=== PATIENT | female | born 1985 | race Caucasian/White ===

== ENCOUNTER 2016-07-31 18:14 | Inpatient (IN) | payer OTHER ==
[~2016-07-31] VITALS: Ht 170.2 cm; Wt 78.9 kg
[2016-07-31] MEDS ORDERED: Lactated Ringer's 1,000 ML IV PRN (19:13)
[2016-07-31] MEDS ORDERED: Carboprost 250 mCg/mL Inj IM PRN ×2 (19:15→22:50)
[2016-07-31] MEDS ORDERED: Hemorrhage Kit, Post Partum XX ONE ×2 (19:15→22:50)
[2016-07-31] MEDS ORDERED: Oxytocin 30 Units/500 mL LR 30 UNITS in IV Premix 1 EACH IV PRN ×2 (19:15→22:50)
[2016-07-31] MEDS ORDERED: Sodium Chloride LOK Flush 10 mL Syringe IVFLUSH PRN (19:15)
[2016-07-31] MEDS ORDERED: Methylergonovine 0.2 mg/mL Inj IM PRN ×2 (19:15→22:50)
[2016-07-31] MEDS ORDERED: Oxytocin 10 Unit/mL Inj IM PRN ×2 (19:15→22:50)
--- NOTE | 2016-07-31 19:30 | PCM.HPANE ---
Patient Data Surgeon Admitting Provider:Diana Batista MD Attending Provider:Diana Batista MD Primary Care Physician:Kenia Other Provider:Isabella Montez Anesthesia Reason for Visit Term Labor Check Ht/WT & BMI Body Mass Index Allergies Coded Allergies: No Known Allergies (Unverified , 07/31/16) Past Anesthesia History Anesthesia History: Denies:: Abnormal Airway, Anesthesia Reactions, Difficult Intubation, Fam Anesthesia Reaction, Fam Malignant Hypertherm, Malignant Hyperthermia Diabetes History Hx Diabetes?: No Medications Hypertension Medication: No Home Meds Incl Beta Aren: No History History of ENT Problems?: No HEENT History: Denies:: Abnormal Airway Cataracts Difficult Intubation Dysphagia Glaucoma Hearing Problem Sinus Problem TMJ Denture Type: None Teeth Condition: Within Normal Limits Hx of Heart Problems?: No Cardiovascular History: Denies:: AICD Abdominal Aortic Aneurism Atrial Fibrillation Cardiac Surgery Chest Pain Congestive Heart Failure Coronary Artery Disease Edema Heart Murmur Hypertension Irregular Heartbeat Pacemaker Peripheral Vascular Rheumatic Fever Thrombophlebitis Valvular Heart Disease Hx of Respiratory Problem?: No Respiratory History: Denies:: Asthma COPD Chest Surgery Cough Dyspnea Emphysema Hemoptysis Oxygen Administration Pneumonia Pulmonary Embolism Tuberculosis Use of C-PAP Machine Use of Inhalers / NEBS Hx Neurologic Problems?: No Hx of GI Problems?: No Hx of Problems?: No Female Hx: Positive for:: Currently Other History/Comment at term, uncomplicated Skin History: Denies:: History Skin Disorders? Pressure Ulcers Hx Musculoskeletal Problems?: No Hx of Psycho/Social Problems?: No Hx Surgeries?: No Hx Any Other Health Problems?: No Hx Diabetes: No Hx Alcohol Use: NoHx Substance Use: No Stop/Bang Treated for Sleep Apnea?: No Do You Have a CPAP Machine?: No Risk Assessment Category Category 1A: Patient has history of documented sleep apnea, and HAS NOT received any narcotic, sedative or anesthesia administration during this stay. Category 1B: Patient has history of documented sleep apnea, and HAS received any narcotic , sedative or anesthesia administration during this stay Category 2: Patient has SUSPECTED Obstructive Sleep Apnea, and HAS received any narcotic , sedative or anesthesia administration during this stay. Category 3: Patient has SUSPECTED Obstructive Sleep Apnea and HAS NOT received narcotic, sedative or anesthesia administration during this stay. Category 4: Outpatient in Procedural Areas with known sleep apnea or who screen positive for High Risk via the STOP/BANG questionnaire. Exam Exam General Appearance: Alert, Oriented X3, Cooperative HEENT/AIRWAY: MP 2 Lungs: Clear to Auscultation Heart: Exam Unremarkable Meds/Labs/Diagnostics Labs Test 07/31/16 19:15 Plan Impression Patient chart reviewed, patient interviewed and anesthestic plan with risks, benefits, and alternatives discussed, and informed consent obtained. ASA Physical Status: ASA2 Mod Systemic Disease Anesthetic Plan: Epidural Bene/Risks/Altern/Consents: Yes HP Complete Prior to Induction: Yes Nehemiah Lopez MD Jul 31, 2016 19:30
[2016-07-31 19:31] LABS: Mean Corpuscular Hemoglobin 28.2 pg (27.0-35.0); Mean Corpuscular Volume 83.7 fL (81-100)
[2016-07-31] MEDS ORDERED: Lactated Ringer's 500 ML IV ONE (19:31)
[2016-07-31] MEDS ORDERED: Atropine 1 mg/10 mL (Code) Syringe IVPUSH PRN (19:35)
[2016-07-31] MEDS ORDERED: fentaNYL 2 mCg/mL-Bupiv 0.125% 100 ML EPIDURAL SCH (19:35)
[2016-07-31] MEDS ORDERED: Ondansetron 2 mg/mL 2 mL Inj IVPUSH PRN (19:35)
[2016-07-31] MEDS ORDERED: EPHEDrine Sulfate 50 mg/mL Inj IVPUSH PRN (19:35)
[2016-07-31] MEDS: Lactated Ringer's 1,000 ML IV SCH (20:20)
[2016-07-31] MEDS ORDERED: LANOlin HPA 7 Gm Ointment TOPICAL PRN (22:50)
[2016-07-31] MEDS ORDERED: Benzocaine (Dermoplast) 20% 60 Gm Spray TOPICAL PRN (22:50)
[2016-07-31] MEDS ORDERED: Witch Hazel-Glycerin Pads TOPICAL PRN (22:50)
--- NOTE | 2016-08-01 00:15 | HP ---
[address] [address] HISTORY AND PHYSICAL PATIENT: AUGUST PEÑA : 1985 MR#: [id number] ADMIT: 07/31/2016 JOB ID: [id number] HISTORY OF PRESENT ILLNESS: This is a 30-year-old female, 2, para 1, at 41 weeks. She presented to [facility] for contractions. She was noted to be 3-4 cm dilated with contraction every 2-3 minutes with category 1 tracing. During observation at triage, it was noticed she had rupture of membranes with clear fluid. She is still having contractions every 2-3 minutes and category 1 tracing. This is a patient who had routine care at [facility]. She is a very compliant patient. During her care, it was noticed that her blood type was A-positive. Pap smear was negative in 2016 in December. Varicella immune, rubella immune, RPR negative, HBsAg negative, HIV negative. Chlamydia and gonorrhea negative. Strep B test was negative. She had a couple of urinary tract infections in early and was placed on suppressive management. There was no more infection in later . ALLERGIES: She had no known drug allergies. PAST MEDICAL HISTORY: Declined. PAST SURGICAL HISTORY: Declined. OBSTETRICAL HISTORY: She had one normal vaginal delivery in 2012. GYNECOLOGIC HISTORY: Not complicated. SOCIAL HISTORY: She declined smoking, drinking alcohol, and drug usage. FAMILY HISTORY: Not significant. PHYSICAL EXAMINATION: She is afebrile. Cardiac: RR. No murmur. Pulmonary: Bilaterally clear. Abdomen: Soft, . Contraction noted every 2-3 minutes and nontender uterus. Uterus well relaxed between contractions. heart tracing category 1. She has grossly ruptured and her cervix was 3-4 cm. ASSESSMENT AND PLAN: A 30-year-old female, 2, para 1, at 41 weeks in active labor with rupture of membranes. 1. Admit the patient to [facility]. 2. GBS negative. There is no need for antibiotics at this time. 3. The patient can have epidural for pain management if prefers to. 4. Expect vaginal delivery.
[2016-08-01] MEDS ORDERED: Erythromycin 0.5% 1 Gm Ophthalmic Ointment RIGHT_EYE ONE (01:35)
--- NOTE | 2016-08-01 02:08 | OP ---
[address] [address] OPERATIVE REPORT PATIENT: AUGUST PEÑA : 1985 MR#: [id number] ADMIT: 07/31/2016 JOB ID: [id number] DATE OF SURGERY: 07/31/2016 PREOPERATIVE DIAGNOSIS(ES): POSTOPERATIVE DIAGNOSIS(ES): SURGEON: DELIVERY NOTE: This is a 30-year-old female, 2, para 2 now, admitted to [facility] for active labor and rupture of membranes. The patient got epidural for pain management after admission. Her pain is well controlled. She progressed to full dilation spontaneously quickly and then she started to have good effort to push. The patient was instructed to push and she had very good effort. The was delivered at NUVIA position, then shoulder and chest delivered without difficulty. The was placed on mother's chest after delivery with good and spontaneous cry. Delayed cord clamp was performed after pulsation disappeared. Then, regular cord blood collected. Placenta delivered spontaneously completely and examined with three-vessel cord. Then, the uterus was well contracted. The perineum examined and noticed that there was slight right periurethral laceration with bleeding. One [id number] stitch was placed. There was no other significant laceration or bleeding. EBL during the delivery was about 200 cc. The patient tolerated the procedure well. All instrument, needles, laps and gauzes counted correct twice. This is a male . score was not available at dictation. The weight was not available at dictation.
[2016-08-01 06:39] LABS: Mean Corpuscular Hemoglobin 28.4 pg (27.0-35.0); Mean Corpuscular Volume 84.4 fL (81-100)
[2016-08-01] MEDS: Lactated Ringer's 1,000 ML IV SCH ×3 (06:47→14:47)
[2016-08-01] MEDS: Sodium Chloride LOK Flush 10 mL Syringe IVFLUSH SCH ×3 (08:30→16:30)
[2016-08-01] MEDS: Nitrofurantoin Monohyd-Macrocryst 100 mg Capsule PO SCH (08:35)
[2016-08-01] MEDS: TOBRAMYCIN DEXAMETHASONE RIGHT_EYE PRN ×2 (16:59→21:29)
[2016-08-02] MEDS: Nitrofurantoin Monohyd-Macrocryst 100 mg Capsule PO SCH (08:17)
[2016-08-02] MEDS: TOBRAMYCIN DEXAMETHASONE RIGHT_EYE PRN ×2 (08:17→11:51)
[2016-08-02] MEDS: Lactated Ringer's 1,000 ML IV SCH (08:18)
[2016-08-02] MEDS: Sodium Chloride LOK Flush 10 mL Syringe IVFLUSH SCH (08:18)
--- NOTE | 2016-08-02 12:43 | PCM.DIOB ---
Obstetrical Disch Instruction Dates of Hospitalization Date of Hospital Admission Jul 31, 2016 at 19:01 Providers Admitting Physician: Diana Batista MD Primary Care Physician: Kenia Attending Physician: Diana Batista MD Diet Discharge Diet: No restrictions Activity Discharge Activity-General: Pelvic Rest for 6 weeks, Activity as pain allows, No lifting >10 pounds for 4-6 weeks Dressing and Incisional Care Hygiene: May shower, NO bathtub, hot tub or whirlpool, Perineal care, Sitz bath , Dermoplast spray, Witch Nessa pads, Ice (6) Additional Instructions Discharge Instructions Please call with severe pain, temperature greater than 100.5 degrees, heavy vaginal bleeding, malodorous discharge. Please schedule a follow up visit in 6 weeks Follow Up Plan Follow-up Provider (F9): Diana Batista MD Follow-up appointment: Weeks (6) Call your provider for: Fever or Chills, Shortness of breath, Heavy vaginal bleeding Wilda Quiñones MD Aug 02, 2016 12:43
[2016-08-02] MEDS ORDERED: IBUP800T28 PO (12:46)
[2016-08-02] MEDS ORDERED: DOCU-41 PO (12:46)
[2016-08-02] MEDS ORDERED: NITR100 PO (13:02)
[2016-08-02] MEDS ORDERED: TBDX5OP RIGHT_EYE (13:02)
[2016-08-02 13:05] VITALS: BP 110/62; PULSE 68
--- NOTE | 2016-08-04 08:18 | DIS ---
[address] [address] DISCHARGE SUMMARY PATIENT: AUGUST PEÑA : 1985 MR#: [id number] ADMIT: 07/31/2016 JOB ID: [id number] DIS: 08/02/2016 ADMISSION DIAGNOSIS: A 30-year-old G 2, P 1-0-0-1 female at 41 weeks being admitted in early labor. DISCHARGE DIAGNOSIS: A 30-year-old G 2, P 1-0-0-1 female at 41 weeks being admitted in early labor. PROCEDURE PERFORMED: Normal spontaneous vaginal delivery on July 31, 2016, of a live born male infant. Please see the operative report for details. REASON FOR ADMISSION: This is a 30-year-old G 2, P 1-0-0-1 female who presented at 41 weeks gestation complaining of regular uterine contractions. She was scheduled to have an induction the following day for post dates. She was found to be 3-4 cm dilated at the time of admission, and while she was being observed in triage, she had rupture of membranes with return of clear fluids. She was then admitted. laboratory data showed blood type of A positive, antibody screen negative, rubella immune, varicella immune, hep B surface antigen negative, RPR nonreactive, HIV negative and GBS negative. She, after admission, had an epidural placed and then quickly progressed to complete, where she went on to deliver the liveborn male infant. Please see the operative report for full details. She was kept until day #2 as her infant was in the NICU due to meconium aspiration syndrome. At day #2, she is noted to have her pain well controlled. She was tolerating a regular diet, voiding and ambulating well on her own. It was at this point in time that she was deemed stable for discharge. LABORATORY DATA: Her white count on day one was 11.6, hemoglobin was 11.8, down from 13.3 preoperatively and her platelet count was 183. INSTRUCTIONS AT DISCHARGE: The patient was advised to remain at pelvic rest for six weeks including no tampons, douching, intercourse. She was asked to call with any signs or symptoms of infection including fever greater than 100.5 degrees, severe pain, malodorous vaginal discharge or bleeding greater than a pad per hour. MEDICATIONS AT DISCHARGE: Included: Ibuprofen 800 mg p.o. q.8 hours p.r.n. pain as well as Colace 100 mg p.o. b.i.d. She was also given eye drops for an eye infection to use 4x daily with a tobramycin/dexamethasone solution and she was asked to continue her nitrofurantoin for her UTI suppression for up to six weeks as she has had two UTIs in the . All questions and concerns of the patient were answered. She was deemed stable for discharge on day #2 and she was discharged to boarder status as her was still in the NICU. ALEKSANDR
== END 2016-08-02 14:13 | disposition home or self-care (01) | DRG 775 ==
LOC: FBCO 18:14 → FBC 19:01
PROVIDERS: ADMIT Obstetrics & Gynecology; ATTEND Obstetrics & Gynecology
PROC: 10E0XZZ Delivery of Products of Conception, External Approach (ICD-10-PCS; principal; 2016-07-31)
PROC: 0TQD7ZZ Repair Urethra, Via Natural or Artificial Opening (ICD-10-PCS; 2016-07-31)
DX: O71.5 Other obstetric injury to pelvic organs (principal); Z3A.41 41 weeks gestation of pregnancy; Z37.0 Single live birth; O48.0 Post-term pregnancy